=== PATIENT | male | born 1955 | race Caucasian/White ===

== ENCOUNTER 2022-07-13 09:42 | Outpatient (REF) | payer OTHER, MEDICARE, SELFPAY ==
[2022-07-13 10:09] LABS: MANUAL DIFF FLAG NO
[2022-07-13 10:44] LABS: Basophils Percent Auto 0.2 % (0-2); Eosinophils Absolute Auto 0.1 X10*3/uL (0.0-0.4); Eosinophils Percent Auto 2.8 % (0-4); Hematocrit 41.9 % (42.0-52.0); Hemoglobin 14.1 g/dl (14.0-18.0); Lymphocytes Absolute Auto 2.4 X10*3/uL (1.2-4.9); Lymphocytes Percent Auto 56.5 % (20-40); Mean Corpuscular HGB Conc 33.7 g/dl (31.0-36.0); Mean Corpuscular Hemoglobin 34.6 pg (27.0-33.0); Mean Corpuscular Volume 102.9 fL (80.0-98.0); Mean Platelet Volume 11.5 fL (9.4-12.4); Monocytes Absolute Auto 0.4 X10*3/uL (0.1-1.2); Monocytes Percent Auto 9.6 % (2-11); Neutrophils Absolute Auto 1.3 x10*3/uL (2.0-8.3); Neutrophils Percent Auto 30.9 % (45-73); Platelet Count 148 X10*3/uL (160-400); Red Blood Count 4.07 X10*6/uL (4.60-5.80); Red Cell Distribution Width 11.9 % (11.0-16.0); White Blood Count 4.3 X10*3/uL (4.8-10.8)
[2022-07-13 11:19] LABS: Alanine Aminotransferase 16 U/L (0-40); Albumin Level 4.2 g/dL (3.5-5.0); Alkaline Phosphatase 85 U/L (39-117); Anion Gap 13 (12-20); Aspartate Amino Transferase 21 U/L (5-37); Bilirubin Total 0.6 mg/dL (0.0-1.0); Blood Urea Nitrogen 9 mg/dL (9-16); Calcium 9.7 mg/dL (8.4-10.2); Carbon Dioxide 28 mmol/L (22-29); Chloride 107 mmol/L (96-108); Cholesterol 163 mg/dL; Estimated Glomerular Filt Rate > 60; Glucose Random 103 mg/dL (60-115); HDL Cholesterol 29 mg/dL; LDL Cholesterol Calculated 103 mg/dl; Potassium 4.8 mmol/L (3.3-5.1); Sodium 143 mmol/L (135-145); Total Protein 6.4 g/dL (6.5-8.0); Triglycerides 156 mg/dL
[2022-07-13 11:49] LABS: Prostate Specific Antigen Scr 0.32 ng/mL (<0.05-4.0); Thyroid Stimulating Hormone 0.95 uIU/mL (0.32-4.0); Vitamin B12 263 pg/mL (200-900)
== END 2022-07-13 09:43 | disposition home or self-care (01) ==
LOC: HO.LAB 09:42
PROVIDERS: PCP Internal Medicine; Visit Provider Internal Medicine
DX: Z12.5 Encounter for screening for malignant neoplasm of prostate (principal); F02.80 Dementia in other diseases classified elsewhere, unspecified severity, without behavioral disturbance, psychotic disturbance, mood disturbance, and anxiety; F32.9 Major depressive disorder, single episode, unspecified; H26.9 Unspecified cataract; I10 Essential (primary) hypertension; Z72.0 Tobacco use
CPT/HCPCS: 36415; 80053; 80061; 82607; 82746; 84153; 84443; 85025

== ENCOUNTER 2022-10-13 09:17 | Outpatient (REF) | payer MEDICARE, SELFPAY ==
[2022-10-13 10:28] LABS: Alanine Aminotransferase 17 U/L (0-40); Albumin Level 4.2 g/dL (3.5-5.0); Alkaline Phosphatase 92 U/L (39-117); Anion Gap 12 (12-20); Aspartate Amino Transferase 24 U/L (5-37); Bilirubin Total 0.5 mg/dL (0.0-1.0); Blood Urea Nitrogen 10 mg/dL (9-16); Calcium 10.1 mg/dL (8.4-10.2); Carbon Dioxide 30 mmol/L (22-29); Chloride 103 mmol/L (96-108); Cholesterol 101 mg/dL (<200); Estimated Glomerular Filt Rate > 60; Glucose Random 117 mg/dL (60-115); HDL Cholesterol 32 mg/dL (>40); LDL Cholesterol Calculated 44 mg/dL (<100); Potassium 4.3 mmol/L (3.3-5.1); Sodium 141 mmol/L (135-145); Triglycerides 129 mg/dL (<150)
== END 2022-10-13 09:18 | disposition home or self-care (01) ==
LOC: HO.LAB 09:17
PROVIDERS: PCP Internal Medicine; Visit Provider Internal Medicine
DX: E78.2 Mixed hyperlipidemia (principal); I10 Essential (primary) hypertension; Z72.0 Tobacco use
CPT/HCPCS: 36415; 80053; 80061

== ENCOUNTER 2023-02-14 09:44 | Outpatient (REF) | payer MEDICARE, SELFPAY ==
[2023-02-14 11:17] LABS: Estimated Average Glucose 131 mg/dL; Hemoglobin A1c % 6.2 % (<6.0)
[2023-02-14 11:19] LABS: Alanine Aminotransferase 31 U/L (0-40); Albumin Level 4.3 g/dL (3.5-5.0); Alkaline Phosphatase 94 U/L (39-117); Anion Gap 12 (12-20); Aspartate Amino Transferase 24 U/L (5-37); Bilirubin Total 0.5 mg/dL (0.0-1.0); Blood Urea Nitrogen 24 mg/dL (9-16); Calcium 9.8 mg/dL (8.4-10.2); Carbon Dioxide 28 mmol/L (22-29); Chloride 109 mmol/L (96-108); Estimated Glomerular Filt Rate > 60; Glucose Random 134 mg/dL (60-115); Potassium 4.2 mmol/L (3.3-5.1); Sodium 145 mmol/L (135-145); Total Protein 7.1 g/dL (6.5-8.0)
== END 2023-02-14 09:45 | disposition home or self-care (01) ==
LOC: HO.LAB 09:44
PROVIDERS: PCP Internal Medicine; Visit Provider Internal Medicine
DX: E78.2 Mixed hyperlipidemia (principal); G47.00 Insomnia, unspecified; I10 Essential (primary) hypertension; R73.01 Impaired fasting glucose; Z72.0 Tobacco use
CPT/HCPCS: 36415; 80053; 83036

== ENCOUNTER 2023-07-12 09:51 | Outpatient (REF) | payer MEDICARE, SELFPAY ==
[2023-07-12 11:02] LABS: Estimated Average Glucose 123 mg/dL; Hemoglobin A1c % 5.9 % (<6.0)
[2023-07-12 11:31] LABS: Alanine Aminotransferase 18 U/L (0-40); Albumin Level 4.5 g/dL (3.5-5.0); Alkaline Phosphatase 110 U/L (39-117); Anion Gap 9 (12-20); Aspartate Amino Transferase 20 U/L (5-37); Bilirubin Total 0.4 mg/dL (0.0-1.0); Blood Urea Nitrogen 17 mg/dL (9-16); Calcium 9.9 mg/dL (8.4-10.2); Carbon Dioxide 29 mmol/L (22-29); Chloride 107 mmol/L (96-108); Cholesterol 150 mg/dL (<200); Estimated Glomerular Filt Rate > 60; Glucose Random 112 mg/dL (60-115); HDL Cholesterol 38 mg/dL (>40); LDL Cholesterol Calculated 93 mg/dL (<100); Potassium 4.4 mmol/L (3.3-5.1); Sodium 141 mmol/L (135-145); Total Protein 7.5 g/dL (6.5-8.0); Triglycerides 97 mg/dL (<150)
[2023-07-12 11:59] LABS: Folate 11.6 ng/mL (> or = 4.0); Prostate Specific Antigen Scr 0.29 ng/mL (<0.05-4.0); Vitamin B12 278 pg/mL (200-900)
== END 2023-07-12 09:52 | disposition home or self-care (01) ==
LOC: HO.LAB 09:51
PROVIDERS: PCP Internal Medicine; Visit Provider Internal Medicine
DX: E78.2 Mixed hyperlipidemia (principal); F02.80 Dementia in other diseases classified elsewhere, unspecified severity, without behavioral disturbance, psychotic disturbance, mood disturbance, and anxiety; I10 Essential (primary) hypertension; N40.0 Benign prostatic hyperplasia without lower urinary tract symptoms; R73.01 Impaired fasting glucose; Z72.0 Tobacco use; Z12.5 Encounter for screening for malignant neoplasm of prostate
CPT/HCPCS: 36415; 80053; 80061; 82607; 82746; 83036; 84153

== ENCOUNTER 2024-03-20 10:29 | Outpatient (REF) | payer MEDICARE, SELFPAY ==
[2024-03-20 10:43] LABS: MANUAL DIFF FLAG NO
[2024-03-20 11:23] LABS: Basophils Percent Auto 0.3 % (0-2); Eosinophils Absolute Auto 0.1 X10*3/uL (0.0-0.4); Eosinophils Percent Auto 1.7 % (0-4); Hematocrit 41.7 % (42.0-52.0); Hemoglobin 14.6 g/dl (14.0-18.0); Imm Gran Abs Auto 0.01 X10*3/uL (0.00-0.03); Imm Gran Pct Auto 0.2 % (0.0-0.4); Lymphocytes Absolute Auto 3.2 X10*3/uL (1.2-4.9); Lymphocytes Percent Auto 49.5 % (20-40); Mean Corpuscular Hemoglobin 35.1 pg (27.0-33.0); Mean Corpuscular Volume 100.2 fL (80.0-98.0); Mean Platelet Volume 11.6 fL (9.4-12.4); Monocytes Absolute Auto 0.5 X10*3/uL (0.1-1.2); Monocytes Percent Auto 7.6 % (2-11); Neutrophils Absolute Auto 2.7 x10*3/uL (2.0-8.3); Neutrophils Percent Auto 40.7 % (45-73); Platelet Count 128 X10*3/uL (160-400); Red Blood Count 4.16 X10*6/uL (4.60-5.80); Red Cell Distribution Width 11.9 % (11.0-16.0); White Blood Count 6.5 X10*3/uL (4.8-10.8)
[2024-03-20 11:38] LABS: Alanine Aminotransferase 28 U/L (0-40); Albumin Level 4.2 g/dL (3.5-5.0); Alkaline Phosphatase 91 U/L (39-117); Anion Gap 9 (12-20); Aspartate Amino Transferase 27 U/L (5-37); Bilirubin Total 0.6 mg/dL (0.0-1.0); Blood Urea Nitrogen 10 mg/dL (9-16); Calcium 9.4 mg/dL (8.4-10.2); Carbon Dioxide 26 mmol/L (22-29); Chloride 108 mmol/L (96-108); Estimated Glomerular Filt Rate > 60; Glucose Random 129 mg/dL (60-115); Potassium 4.1 mmol/L (3.3-5.1); Sodium 139 mmol/L (135-145); Total Protein 7.2 g/dL (6.5-8.0)
== END 2024-03-20 10:30 | disposition home or self-care (01) ==
LOC: HO.LAB 10:29
PROVIDERS: PCP Internal Medicine; Visit Provider Internal Medicine
DX: D69.6 Thrombocytopenia, unspecified (principal); E78.2 Mixed hyperlipidemia; H26.9 Unspecified cataract; I10 Essential (primary) hypertension; Z72.0 Tobacco use
CPT/HCPCS: 36415; 80053; 85025

== ENCOUNTER 2024-08-20 05:53 | Inpatient (IN) | payer MEDICARE, SELFPAY ==
[2024-08-20] VITALS (8 sets, daily range): BP systolic 118–165; BP diastolic 46–102; PULSE 51–65; RESP 10–20; TEMP 36.2–36.6; O2SAT 95–100; BMI 24.3; BMI 24.2
--- NOTE | 2024-08-20 | ECG_ITS ---
Test Reason : CP Blood Pressure : */* mmHG Vent. Rate : 57 BPM Atrial Rate : 57 BPM P-R Int : 146 ms QRS Dur : 86 ms QT Int : 404 ms P-R-T Axes : 19 82 60 degrees QTcB Int : 393 ms Sinus bradycardia T wave abnormality, consider anterior ischemia Abnormal ECG No previous ECGs available Referred By: Generic ED Physician Electronically Signed By: Yong Arellano
--- NOTE | ~2024-08-20 | XR_ITS ---
CLINICAL HISTORY: chest pain 1 view chest x-ray Comparison: None provided Findings: Right lower lobe consolidation. Normal heart size. No acute fracture. IMPRESSION: 1. Hazy right lower lobe consolidation concerning for infection. This document has been electronically signed by: Radha Boo MD on 08/20/2024 07:42:19
--- NOTE | ~2024-08-20 | CT_ITS ---
EXAMINATION: CT CHEST WITHOUT IV CONTRAST INDICATION: abnormal chest x-ray COMPARISON: Correlation is made with an AP portable view of the chest performed earlier in the day. TECHNIQUE: Helical CT scan of the chest was performed without intravenous contrast. Coronal and sagittal reformatted images were generated and reviewed. This CT exam was performed with one or more of the following dose reduction techniques: automated exposure control, adjustment of the mA and/or kV according to patient size, use of iterative reconstruction technique. DLP: 239 mGy-cm CHEST: THYROID: The thyroid is unremarkable. LUNGS: There are mild emphysematous changes. There is minimal dependent atelectasis in both lower lobes. The lungs are otherwise clear. No focal airspace opacities are identified. MEDIASTINUM: There is no mediastinal lymphadenopathy. NEO: Evaluation of the hilar regions is limited by lack of intravenous contrast material. CARDIOVASCULATURE: The heart is normal in size. There is no pericardial effusion. The thoracic aorta is normal in caliber. DEGREE OF CORONARY CALCIFICATION: mild PLEURA: There is no pleural effusion. No pneumothorax. MAIN AIRWAYS: The mainstem bronchi and proximal branches are patent. AXILLA: There is no axillary lymphadenopathy. BONES AND SOFT TISSUES: Unremarkable UPPER ABDOMEN: The visualized portions of the liver, spleen, and adrenals have an unremarkable unenhanced appearance. CT/CT chest wo IV con IMPRESSION: Mild emphysema. Mild dependent atelectasis. No focal airspace opacity is seen to suggest pneumonia. Electronically signed by: Jose M Saenz MD 08/20/2024 09:23 AM EDT
--- OUTSIDE RECORDS SUMMARY | 2024-08-20 06:05 | XMS_ITS | Patient Health Record ---
Author Organization [facility] Address [address] [place] [address] Care Team Providers [employer] Name Role Phone Marlen Clark Primary Care Provider Unavailab Jose M Cano Unavailable [phone] Reason For Referral No Information Medications Medication SIG (Take, Route, Fr equency, Duration) Notes Start Date End Date Status MoviPrep 100 GM as directed Orally once for 1 dose 05/16/2012 Active Problems Problem Type SNOMED Code ICD Code Onset Dates Problem Status W/U Status Risk Notes Problem Colon cancer screening (V76.51) Active confirmed Plan Of Treatment Future Test Test Name Order Date COLONOSCOPY 05/16/2012 Insurance Providers Payer Name Payer Address Payer Phone Subscriber Number Group Number Insured Name Patient Relationship to Insured Coverage Start Date Coverage End Date [facility] [address] [place], [place] [id number] HARRY SAMUELS Self - patient is the insured Medical (General) History Medical History History ICD Code Diet-controlled DM Hyperlipidemia Denies [place],CVA,Lung disease,renal disease
--- NOTE | 2024-08-20 06:10 | ED.CHESTPAIN ---
HPI - Chest Pain General Chief Complaint: Chest Pain Stated Complaint: CP Time Seen by Provider: 08/20/24 06:00 Source: patient and old records reviewed Mode of arrival: ambulatory Limitations: no limitations History of Present Illness ED Provider: MARCIN HPI narrative: 69 yo male with PMH of HTN, HLD, smoker no known CAD but family has hx of CAD here with c/o chest pain on and off x 1 week. No preceding URI, travel, procedures. He states it is not related to exertion. He has refused to come to the doctors. Last night he had more pressure while watching TV and felt nauseated. His is here and notes he had pain from 7pm to 5am. Patient states it feels pressure. He blames his smoking. His father of a [place] as well. Patient has never had cardiac work up before. MD complaint: chest pain Onset (ago): week(s) (1) Timing of current episode: episodic and now resolved Prior episodes: Yes Onset: during rest Pain location: substernal, left chest and right chest Pain radiation: none Severity: moderate Quality: other (pressure) Relieving factors: rest Exacerbating factors: nothing Associated symptoms: nausea Treatment prior to arrival: none Related Data Allergies Allergy/AdvReac Type Severity Reaction Status Date / Time No Known Allergies Allergy Mild NKA Verified 08/20/24 06:09 Review of Systems Review of Systems: Constitutional : No Weight loss, No Fever, No Chills ENT/Mouth : No sore throat, No Rhinorrhea Eyes: No Eye Pain, No Swelling Cardiovascular : pos Chest Pain, no SOB, No Orthopnea, No Edema, No Palpitations Respiratory : No Cough, No Sputum Gastrointestinal : pos Nausea, No Vomiting, No Diarrhea, No abdominal Pain, No Hematochezia, No Melena Genitourinary : No Dysuria, No Urinary Frequency Musculoskeletal : No joint pain, No Myalgias, No Joint Swelling Skin : No Skin Lesions, No rash Neuro : No Weakness, No Numbness, No Dizziness, No Headache Psych : No Anxiety/Panic, No Depression Heme/Lymph: No Bruising, No Lymphadenopathy Endocrine : No Polyuria, No Polydipsia All other systems reviewed and are negative PMFSH Past Medical History Attestation statement: The following information was validated with the patient. Source: old records reviewed Medical History HLD (hyperlipidemia) HTN (hypertension) Social History Social History (Updated 08/20/24 @ 07:20 by Chelsie Mckeon DO) Patient Tobacco Use Status: Current everyday Tobacco user Smoked in Last 30 Days: Yes Use of substances other than those prescribed or required for medical reasons: No Advance Directives: No Advance Directives Information Provided: Yes Do you have a plan to hurt others: No Plan Physical Exam Vital Signs: Vital Signs: Last Vital Signs Temp 97.2 F 08/20/24 07:09 Pulse 60 08/20/24 07:09 Resp 15 08/20/24 07:09 BP 140/58 H 08/20/24 07:09 Pulse Ox 97 08/20/24 07:09 O2 Del Method Room Air 08/20/24 07:09 BMI result Body Mass Index 24.2 Appearance: Alert. Oriented X3. No acute distress. Eyes: Pupils equal, round and reactive to light. ENT: Pharynx normal. Neck: Normal inspection. Neck supple. CVS: Normal heart rate and rhythm. Pulses normal. Respiratory: No respiratory distress. Breath sounds normal. Abdomen: Soft and nontender. Skin: Skin warm and dry. Normal skin color. Normal skin turgor. Extremities: No lower extremity edema. No calf ttp Neuro: Oriented X 3. No motor deficit. No sensory deficit. CN2-12 intact Course Course Course Narrative: xray read as possible pneumonia but he has no wbc count he has no cough, no sputum no fevers clinically not consistent with pneumonia he is a smoker will need CT scan for mass Medications Administered Generic Name Dose Route Start Last Admin Trade Name Freq PRN Reason Stop Dose Admin Heparin Sodium/Sodium Chloride 25,000 unit in 250 mls @ 0 mls/hr 08/20/24 07:00 08/20/24 07:41 Heparin Sodium,Porcine/1/2ns IVCONT 12 units/kg/hr .Q0M MARIE 7.96 mls/hr Protocol Administration Per Protocol Discontinued Medications Generic Name Dose Route Start Last Admin Trade Name Freq PRN Reason Stop Dose Admin Aspirin 162 mg 08/20/24 06:26 08/20/24 06:33 Aspirin 81 Mg Tab.Chew PO 08/20/24 06:27 162 mg ONCE ONE Administration Medical Decision Making Medical Decision Making MDM Narrative: 69 yo male with PMH of HTN, HLD, smoker no known CAD but family has hx of CAD here with c/o chest pain and EKG changes with sig fam hx at this time will obtain labs, EKG, trop, give aspirin. He is pain free and BP is stable. Suspect ACS vs NSTEMI. He has no risk factors for VTE, his pulses are intact and one week of pressure doubt dissection. Differential Diagnosis Differential Diagnoses: The differential diagnosis associated with the presentation includes ACS, atypical chest pain, NSTEMI Admission/Observation Consideration of admission/observation: Escalation of care including admission/observation considered admit on heparin per cardiology Consult Healthcare Provider Management of the patient was discussed with: Sales Ambassador message sent to cardiology 655am Adan aware of 2nd EKG with wellens pattern plan same to admit on heparin Lab Data [facility] Lab Attestation statement: I reviewed the patient's lab results. 08/20/24 06:16 08/20/24 06:16 Labs: Lab Results 08/20/24 Range/Units 06:16 WBC 5.5 (4.8-10.8) X10*3/uL RBC 3.91 L (4.60-5.80) X10*6/uL Hgb 13.7 L (14.0-18.0) g/dl Hct 39.6 L (42.0-52.0) % MCV 101.3 H (80.0-98.0) fL MCH 35.0 H (27.0-33.0) pg MCHC 34.6 (31.0-36.0) g/dl RDW 12.0 (11.0-16.0) % Plt Count 101 L (160-400) X10*3/uL MPV 11.3 (9.4-12.4) fL Immature Gran % (Auto) 0.2 (0.0-0.4) % Neut % (Auto) 37.2 L (45-73) % Lymph % (Auto) 52.0 H (20-40) % [place] % (Auto) 8.4 (2-11) % Eos % (Auto) 1.8 (0-4) % Baso % (Auto) 0.4 (0-2) % Lymph # (Auto) 2.8 (1.2-4.9) X10*3/uL [place] # (Auto) 0.5 (0.1-1.2) X10*3/uL Eos # (Auto) 0.1 (0.0-0.4) X10*3/uL Baso # (Auto) 0.0 (0.0-0.2) X10*3/uL Abs Immat Gran (auto) 0.01 (0.00-0.03) X10*3/uL Absolute Neuts (auto) 2.0 (2.0-8.3) x10*3/uL Absolute Nucleated RBC 0.000 (0.0-0.012) X10*3/uL Nucleated RBC % (auto) 0.0 (0.0-0.2) /100WBC Smear Tech's Comments VERIFIED PT 11.3 (10.9-12.4) SEC INR 1.0 (0.9-1.1) Sodium 137 (135-145) mmol/L Potassium 3.9 (3.3-5.1) mmol/L Chloride 103 (96-108) mmol/L Carbon Dioxide 24 (22-29) mmol/L Anion Gap 14 (12-20) BUN 14 (9-16) mg/dL Creatinine 0.82 (0.5-1.4) mg/dL Estim Creat Clear Calc 75.0 Estimated GFR > 60 Random Glucose 142 H (60-115) mg/dL Calcium 9.3 (8.4-10.2) mg/dL Magnesium 1.7 (1.6-2.6) mg/dL Total Bilirubin 0.3 (0.0-1.0) mg/dL Direct Bilirubin 0.2 (0.0-0.5) mg/dL AST 161 H (5-37) U/L ALT 108 H (0-40) U/L Alkaline Phosphatase 107 (39-117) U/L Troponin I High Sens 301.1 H* (<3.5-35.0) ng/L B-Natriuretic Peptide 135 H (<100) pg/mL Total Protein 6.5 (6.5-8.0) g/dL Albumin 4.2 (3.5-5.0) g/dL Independent Interpretation I performed an independent interpretation of an: EKG and Plain X-Ray (?RLL opacity) Interpretation: Rate: 57 Rhythm: sinus bradycardia [place]: normal Normal P waves. Normal KATIE. Normal QRS complex. ST T wave : inverted t waves V1, biphasic V2-V3, no RIAN qTC: 404 prior studies: no prior The study has been interpreted contemporaneously by me. EKG #2 Rate: 58 Rhythm: sinus bradycardia [place]: normal Normal P waves. Normal KATIE. Normal QRS complex. ST T wave : inverted t waves V1-V5 no RIAN, concern for wellens qTC: 416 prior studies: changed The study has been interpreted contemporaneously by me. . Radiology Impression Discussion of test interpretation with radiology: I have reviewed the radiologist's reading. Independent Historian Clinical information obtained from an independent historian. History obtained from or confirmed by: Spouse External Record Review External record reviewed: Outpatient record and Prior outpatient labs Critical Care Time Critical Care Time Critical Care Time: Yes Total Critical Care Time: 35 Attestation: Time is exclusive of separately billable procedures. Time includes: direct patient care, patient reassessment, coordination of patient care, interpretation of data (laboratory data, pulse oximetry, arterial blood gases and chest xrays), review of patient's medical records, medical consultation and documentation of patient care. Procedures excluded from critical care time: electrocardiography. I attest to this time spent taking care of the patient Discharge Plan Discharge Clinical Impression: Non-ST elevation [place] (NSTEMI) Chest pain Qualifiers: Chest pain type: precordial pain Qualified Code(s): R07.2 - Precordial pain Patient Disposition: Admitted As Inpatient Print Language: Ecuadorean
[2024-08-20 06:36] LABS: Hematocrit 39.6 % (42.0-52.0); Hemoglobin 13.7 g/dl (14.0-18.0); Imm Gran Abs Auto 0.01 X10*3/uL (0.00-0.03); Imm Gran Pct Auto 0.2 % (0.0-0.4); Lymphocytes Absolute Auto 2.8 X10*3/uL (1.2-4.9); MANUAL DIFF FLAG SCAN; Mean Corpuscular HGB Conc 34.6 g/dl (31.0-36.0); Mean Corpuscular Hemoglobin 35.0 pg (27.0-33.0); Mean Corpuscular Volume 101.3 fL (80.0-98.0); NRBC Abs Auto 0.000 X10*3/uL (0.0-0.012); NRBC Pct Auto 0.0 /100WBC (0.0-0.2); PLT CLUMP 1; Red Blood Count 3.91 X10*6/uL (4.60-5.80); SCAN SMEAR FLAG 1
[2024-08-20 06:39] LABS: INTERNATIONAL NORM RATIO 1.0 (0.9-1.1); Prothrombin Time 11.3 SEC (10.9-12.4)
[2024-08-20 06:43] LABS: Alanine Aminotransferase 108 U/L (0-40); Albumin Level 4.2 g/dL (3.5-5.0); Alkaline Phosphatase 107 U/L (39-117); Anion Gap 14 (12-20); Aspartate Amino Transferase 161 U/L (5-37); Blood Urea Nitrogen 14 mg/dL (9-16); Calcium 9.3 mg/dL (8.4-10.2); Carbon Dioxide 24 mmol/L (22-29); Chloride 103 mmol/L (96-108); Creatinine Clr Calc Pharmacy 75.0; Estimated Glomerular Filt Rate > 60; Magnesium 1.7 mg/dL (1.6-2.6); Potassium 3.9 mmol/L (3.3-5.1); Sodium 137 mmol/L (135-145); Total Protein 6.5 g/dL (6.5-8.0)
[2024-08-20 06:45] LABS: B Type Natriuretic Peptide 135 pg/mL (<100)
[2024-08-20 06:49] LABS: Platelet Count 101 X10*3/uL (160-400); Troponin-I High Sensitivity 301.1 ng/L (<3.5-35.0); White Blood Count 5.5 X10*3/uL (4.8-10.8)
--- NOTE | 2024-08-20 06:58 | ECG_ITS ---
Test Reason : CHEST PAIN Blood Pressure : */* mmHG Vent. Rate : 58 BPM Atrial Rate : 58 BPM P-R Int : 154 ms QRS Dur : 82 ms QT Int : 424 ms P-R-T Axes : 32 81 82 degrees QTcB Int : 416 ms Sinus bradycardia Septal infarct , age undetermined ST & Marked T wave abnormality, consider anterolateral ischemia Abnormal ECG When compared with ECG of 20-Aug-2024 05:54, Non-specific change in ST segment in Anterior leads T wave inversion more evident in Anterolateral leads Referred By: Chelsie Mckeon Electronically Signed By: Yong Arellano
--- NOTE | 2024-08-20 07:00 | CA_ITS ---
Transthoracic Echocardiogram Patient (Last, First, Middle): Calvin Phillips M Gender: Male Date of : 1955 Age: 69 Procedure Date: 08/20/2024 Procedure Type: Transthoracic Echocardiogram Location: ER Height: 165.1 cm Weight: 65.77 kg BSA: 1.73 m2 Heart Rate: 55 bpm BP: 152 / 83 mmHg Ship Fitter: SB/RC Referring MD: Chepe Cadena MD Symptoms: nstemi Study Quality: Adequate ECG Rhythm: Bradycardia Conclusions: - Normal left ventricular size and systolic function. There is mildly increased left ventricular wall thickness. The visually estimated ejection fraction is between 55-60%. Diastolic function is normal for age. - The apical septum and mid inferoseptal segments are hypokinetic. - The mid anteroseptal segment is akinetic. - The left atrium is mildly dilated. The right atrium is likely dilated. Findings Left Ventricle Normal left ventricular size and systolic function. There is mildly increased left ventricular wall thickness. The visually estimated ejection fraction is between 55-60%. Diastolic function is normal for age. Wall Motion Rest Echo Findings The apical septum and mid inferoseptal segments are hypokinetic. The mid anteroseptal segment is akinetic. Right Ventricle Normal right ventricular cavity size and systolic function. Atria The left atrium is mildly dilated. The right atrium is likely dilated. Aortic Valve Normal aortic valve structure and function. There is no aortic valve stenosis. There is no aortic valve regurgitation. Mitral Valve The mitral valve appears normal. There is trace mitral valve regurgitation. There is no mitral valve stenosis. Pulmonic Valve The pulmonic valve is likely normal. Tricuspid Valve Normal tricuspid valve structure. There is mild tricuspid valve regurgitation. Normal right atrial pressure. There is no evidence of pulmonary hypertension. Great Vessels All visible segments of the aorta are normal in size. The visualized portions of the pulmonary artery and branches are normal. Venous The inferior vena cava is normal in size and collapses greater than 50% with inspiration. Pericardium/Pleural There is no evidence of pericardial effusion. Prior Study Comparison No prior study available for comparison. Measurements 2D Linear Measurements IVSd: 1.27 0.6-0.9/0.6-1.0 cm LVIDd: 4.35 3.9-5.3/4.2-5.9 cm LVIDd Index: 2.51 2.4-3.2/2.2-3.1 cm/m2 LVIDs: 3.07 2.0-3.6 cm LVPWd: 1.13 0.7-1.1 cm LA Diam: 4.10 2.7-3.8/3.0-4.0 cm LAIDs Index: 2.37 1.5-2.3 cm/m2 LV Mass: 234.24 67-162/88-224 g LV Mass Index: 135.40 43-95/49-115 g/m2 LVOT Diam: 1.90 3.0+(-)1.3 cm 2D Systolic Function EF 4C: 62.50 >55% EF 2C: 73.40 >55% EF BiP: 68.30 >55% Mitral Valve MV Pk E: 0.63 MV PK A: 0.80 MV Decel Time: 200.00 E/A: 0.80 E'Lateral: 9.03 E'Medial: 6.53 E/E' Med: 9.60 E/E' Lat: 6.90 PHT: 59.00 MVA PHT: 3.73 Decel [place]: 3.14 Aortic Valve AoV Pk Barry: 1.33 AoV Pk Grad: 7.00 JAROD: 2.14 LVOT LVOT Pk Barry: 0.98 LVOT Mn Barry: 0.65 LVOT VTI: 0.22 LVOT Pk Grad: 4.00 LVOT Mn Grad: 2.00 LVOT Diam: 1.90 LVOT Area: 2.84 Diastolic Function MV Pk E: 0.63 MV Pk A: 0.80 E/A: 0.80 E'Medial: 6.53 E/E' Med: 9.60 E' Laterial: 9.03 E/E' Lat: 6.90 Right Ventricle TAPSE (mm): 30.50 TVS' Barry: 13.90 Tricuspid Valve TR Pk Barry: 2.54 TR Pk Grad: 26.00 RA Press: 3.00 RVSP: 29.00 Great Vessels Aorta Sinus of Valsalva: 2.80 2.0-3.5 cm Ao Asc: 2.90 2.1-3.4 cm Pulmonary Valve PV Pk Barry: 1.09 Peak PV Grad: 5.00 Updated in Other Vendor System with Status of Final Yong Arellano MD electronically signed on 08/20/2024 4:11:08 PM with status of Final
[2024-08-20] MEDS: Heparin Sodium,Porcine/1/2NS 25,000 UNIT/250 ML IV.SOLN 7.96 UNIT IVCONT (07:41)
[2024-08-20 07:47] LABS: PTT Heparin Drip 30.6 SEC (53-77.9)
--- NOTE | 2024-08-20 07:51 | PC.NURSE ---
Patient is a 69 yo male with PMH of HTN, HLD, smoker no known CAD but family has hx of CAD here with c/o chest pain on and off x 1 week. He states it is not related to exertion. He has refused to come to the doctors. Last night he had more pressure while watching TV and felt nauseated. His is here and notes he had pain from 7pm to 5am. Patient states it feels pressure. He blames his smoking. His father of a [place] as well. Patient has never had cardiac work up before. Cardiac maintained and sbrady noted. Denies any CP or sob. Lungs clear bilat. Respirations even and non-labored. Abdomen soft, non-tender with positive bowel sounds. Positive pedal pulses with no edema. 1st troponin noted to be positive and heparin gtt initiated per protocol.
--- NOTE | 2024-08-20 08:45 | P.HPHOSP_ITS ---
History of Present Illness Date of Service: 08/20/24 Chief Complaint: chest and back pain The patient is a 69-year-old male with a past medical history of hypertension, hyperlipidemia, tobacco smoking and a family history of premature CAD who presents to the emergency room with complaints of back and chest pain for the last 1 week. The patient reports symptoms of intermittent, sharp, back pain it but occurring multiple times throughout the day. Reports similar symptoms in the past but states that over the last 1 week this has occurred nearly daily. He states that these symptoms happen at rest. He reports feeling nauseating and diaphoretic during the episodes. He reports that over the last several days he has also began feeling substernal chest pressure. On workup in the emergency room the patient was found to have EKG changes in the anterior leads. His initial troponins 300. He has been initiated on oral aspirin and IV heparin drip. His case has been discussed with the on-call cloth colors examiner. The patient is seen and examined in the ED around 08:30. His is bedside who translates. Dispatcher Street Department services are offered and declined. Daughter is also on the phone. The patient reports no current chest pain. States feels better. Review of Systems 2 Review of Systems: Negative except HPI/interval history. [facility] Medical History HLD (hyperlipidemia) HTN (hypertension) Pertinent family history: CAD in father in 50s CVA in sister Social History (Updated 08/20/24 @ 07:20 by Chelsie Mckeon DO) Patient Tobacco Use Status: Current everyday Tobacco user Smoked in Last 30 Days: Yes Use of substances other than those prescribed or required for medical reasons: No Advance Directives: No Advance Directives Information Provided: Yes Do you have a plan to hurt others: No Plan Meds Allergies Allergy/AdvReac Type Severity Reaction Status Date / Time No Known Allergies Allergy Mild NKA Verified 08/20/24 06:09 Active Medications: Current Medications Acetaminophen (Acetaminophen 325 Mg Tablet) 650 mg PO Q6H PRN PRN Reason: Pain, Mild 1-3,fever,headache Calcium Carbonate (Calcium Carbonate 750 Mg Tab.Chew) 750 mg PO Q4H PRN PRN Reason: Heartburn Heparin Sodium (Porcine) (Heparin Sodium,Porcine 5,000 Unit/Ml Vial) 2,700 unit 40 unit/kg (2700 unit) IVPUSH PROTOCOL BOLUS PRN; Protocol PRN Reason: 40 unit/kg - Heparin Protocol Heparin Sodium (Porcine) (Heparin Sodium,Porcine 5,000 Unit/Ml Vial) 5,300 unit 80 unit/kg (5300 unit) IVPUSH PROTOCOL BOLUS PRN; Protocol PRN Reason: 80 unit/kg - Heparin Protocol Heparin Sodium/Sodium Chloride (Heparin Sodium,Porcine/1/2ns) 25,000 unit in 250 mls @ 0 mls/hr IVCONT .Q0M MARIE; Protocol Last Admin: 08/20/24 07:41 Dose: 12 units/kg/hr, 7.96 mls/hr Magnesium Hydroxide (Milk Of Magnesia 30 Ml Oral.Susp) 30 ml PO DAILY PRN PRN Reason: Constipation Melatonin (Melatonin 3 Mg Tablet) 6 mg PO BEDTIME PRN PRN Reason: Insomnia Sodium Chloride (0.9 % Sodium Chloride Flush 3 Ml Syringe) 3 [facility] Medications ?Medication ?Instructions ?Recorded ?Confirmed ?Last Taken ?Type atorvastatin 10 mg tablet 10 mg PO DAILY 08/20/24 Unk nown History donepezil 10 mg tablet 10 mg PO DAILY 08/20/24 Unk nown History losartan 50 mg tablet 50 mg PO DAILY 08/20/24 Unk nown History Physical Exam 2 Vital Signs and Narrative: Vital Signs: Last Vital Signs Temp 97.2 F 08/20/24 08:17 Pulse 62 08/20/24 08:17 Resp 10 L 08/20/24 08:17 BP 118/58 L 08/20/24 08:17 Pulse Ox 99 08/20/24 08:17 O2 Del Method Room Air 08/20/24 08:17 BMI result Body Mass Index 24.2 Const: Other: Constitutional - Awake and Alert, No apparent distress Eyes - PERRLA, EOMI Cardiovascular - S1S2, RRR, No edema Respiratory - Normal lung expansion, Normal respiratory effort, No respiratory distress, CTA bilaterally Gastrointestinal - NT / ND; +BS; No rebound or guarding - No CVA tenderness Extremities - no calf tenderness bilaterally, no swelling Musculoskeletal - Normal inspection, normal ROM Skin - Warm/Dry Neurological - Alert & oriented x3, No focal deficit Psychological - Appropriate affect Results Labs 08/20/24 06:16 08/20/24 06:16 Labs: Laboratory Results - last 24 hr 08/20/24 08/20/24 06:16 07:28 MCV 101.3 H MCH 35.0 H MCHC 34.6 RDW 12.0 Plt Count 101 L MPV 11.3 Immature Gran % (Auto) 0.2 Neut % (Auto) 37.2 L Lymph % (Auto) 52.0 H [place] % (Auto) 8.4 Eos % (Auto) 1.8 Baso % (Auto) 0.4 Lymph # (Auto) 2.8 [place] # (Auto) 0.5 Eos # (Auto) 0.1 Baso # (Auto) 0.0 Abs Immat Gran (auto) 0.01 Absolute Neuts (auto) 2.0 Absolute Nucleated RBC 0.000 Nucleated RBC % (auto) 0.0 Smear Tech's Comments VERIFIED PT 11.3 INR 1.0 aPTT Heparin Protocol 30.6 L Anion Gap 14 Estim Creat Clear Calc 75.0 Estimated GFR > 60 Random Glucose 142 H Calcium 9.3 Magnesium 1.7 Total Bilirubin 0.3 Direct Bilirubin 0.2 AST 161 H ALT 108 H Alkaline Phosphatase 107 B-Natriuretic Peptide 135 H Total Protein 6.5 Albumin 4.2 Assessment and Plan (1) Non-ST elevation MD (NSTEMI): Status: Acute Plan 69 yo M with risk factors for CAD including HTN, HLD, tobacco use and FH for premature CAD in father who presents with intermittent chest and back pain x 1 week. Work up in ED consistent with NSTEMI. Will be admitted for further work up. 1. NSTEMI Ishcemic changes in the anterior lead + positive trop IV heparin, asa, statin, BB if bp allows (HR in the 60s currently) cardiology consult, 2d echo 2. HTN ? on losartan at home, will hold to make room for metoprolol 3. HLD AST/ALT elevated -- hold statin for now (will d/w cardiology) check lipids 4. Abnormal cxr being read as pneumonia -- pt without symptoms CT chest pending 5. Transaminitis pt endorses social drinking only will trend Full Code DVT pptx - lovenox Quality Stroke Does the patient have a stroke diagnosis?: No VTE Prior VTE?: No VTE Risk Level:: Medical - moderate - high VTE Device Contraindication: N/A - Device Ordered VTE Drug Contraindication: N/A - Med Ordered
--- NOTE | 2024-08-20 08:57 | PHA.MEDREC ---
Pharmacy Consult ? Medication Reconciliation Pharmacy has completed the medication reconciliation. Spoke with patient's family at bedside, she had his prescription bottles with her.
--- NOTE | 2024-08-20 09:20 | MHC.CM.PN ---
PATIENT IS INDEPENDENT PRIOR TO ARRIVAL. DOES NOT RELY ON DME VERIFIES DEMOGRAPHICS AND PCP. NEW HCP COMPLETED, PLACED IN CHART, AND UPLOADED INTO [facility]. IMM 08/19/ COMPLETED AND PLACED IN FILE
[2024-08-20 09:34] LABS: Cholesterol 118 mg/dL (<200); HDL Cholesterol 35 mg/dL (>40); Triglycerides 166 mg/dL (<150)
--- NOTE | 2024-08-20 13:07 | P.CONCA_ITS ---
History of Present Illness History of Present Illness Date of Service: 08/20/24 Requesting physician: Chepe Cadena Chief complaint: nstemi Narrative: Pleasant 69-year-old gentleman presenting for chest discomfort. He said he has central chest tightness yesterday and another episode happened a week ago. Last night his symptoms were persistent and he came to the emergency department. His EKGs showed biphasic precordial T-wave inversion which evolved into anterolateral T-wave inversions. He has ruled in for NSTEMI. He has been asymptomatic since admission. He has background of hypertension hyperlipidemia. He is an active smoker. He drinks beer off and on but does not drink heavily. [facility] Past Medical History Medical History HLD (hyperlipidemia) HTN (hypertension) Social History Social History (Updated 08/20/24 @ 07:20 by Chelsie Mckeon DO) Patient Tobacco Use Status: Current everyday Tobacco user Smoked in Last 30 Days: Yes Use of substances other than those prescribed or required for medical reasons: No Advance Directives: No Advance Directives Information Provided: Yes Do you have a plan to hurt others: No Plan service: No Meds Allergies Allergy/AdvReac Type Severity Reaction Status Date / Time No Known Allergies Allergy Mild NKA Verified 08/20/24 06:09 Active Medications: Current Medications Acetaminophen (Acetaminophen 325 Mg Tablet) 650 mg PO Q6H PRN PRN Reason: Pain, Mild 1-3,fever,headache Calcium Carbonate (Calcium Carbonate 750 Mg Tab.Chew) 750 mg PO Q4H PRN PRN Reason: Heartburn Heparin Sodium (Porcine) (Heparin Sodium,Porcine 5,000 Unit/Ml Vial) 2,700 unit 40 unit/kg (2700 unit) IVPUSH PROTOCOL BOLUS PRN; Protocol PRN Reason: 40 unit/kg - Heparin Protocol Heparin Sodium (Porcine) (Heparin Sodium,Porcine 5,000 Unit/Ml Vial) 5,300 unit 80 unit/kg (5300 unit) IVPUSH PROTOCOL BOLUS PRN; Protocol PRN Reason: 80 unit/kg - Heparin Protocol Heparin Sodium/Sodium Chloride (Heparin Sodium,Porcine/1/2ns) 25,000 unit in 250 mls @ 0 mls/hr IVCONT .Q0M MARIE; Protocol Last Admin: 08/20/24 07:41 Dose: 12 units/kg/hr, 7.96 mls/hr Magnesium Hydroxide (Milk Of Magnesia 30 Ml Oral.Susp) 30 ml PO DAILY PRN PRN Reason: Constipation Melatonin (Melatonin 3 Mg Tablet) 6 mg PO BEDTIME PRN PRN Reason: Insomnia Sodium Chloride (0.9 % Sodium Chloride Flush 3 Ml Syringe) 3 ml IVFLUSH QSHIFT [facility] Home Medications ?Medication ?Instructions ?Recorded ?Confirmed ?Last Taken ?Type atorvastatin 10 mg tablet 10 mg PO DAILY 08/20/2410/0708/19/24 09:00 History donepezil 10 mg tablet 10 mg PO DAILY 08/20/2410/0708/19/24 09:00 History losartan 50 mg tablet 50 mg PO DAILY 08/20/2410/0708/19/24 09:00 History Physical Exam 2 Vital Signs: Vital Signs: Last Vital Signs Temp 97.2 F 08/20/24 08:17 Pulse 61 08/20/24 10:00 Resp 15 08/20/24 10:00 BP 142/59 H 08/20/24 10:00 Pulse Ox 95 08/20/24 10:00 O2 Del Method Room Air 08/20/24 10:00 BMI result Body Mass Index 24.2 GENERAL APPEARANCE: in no acute distress, pleasant. NECK: no carotid bruit, no jugular venous distention. SKIN: no suspicious lesions, warm and dry. HEART: no murmurs, regular rate and rhythm. LUNGS: clear to auscultation bilaterally. ABDOMEN: soft, nontender. EXTREMITIES: no edema. PERIPHERAL PULSES: equal. NEUROLOGIC: No gross deficits, AAO X 3 Objective Labs and Meds 08/20/24 06:16 08/20/24 06:16 Lab results: Laboratory Results - last 24 hr 08/20/24 08/20/24 06:16 07:28 WBC 5.5 RBC 3.91 L Hgb 13.7 L Hct 39.6 L MCV 101.3 H MCH 35.0 H MCHC 34.6 RDW 12.0 Plt Count 101 L MPV 11.3 Immature Gran % (Auto) 0.2 Neut % (Auto) 37.2 L Lymph % (Auto) 52.0 H [place] % (Auto) 8.4 Eos % (Auto) 1.8 Baso % (Auto) 0.4 Lymph # (Auto) 2.8 [place] # (Auto) 0.5 Eos # (Auto) 0.1 Baso # (Auto) 0.0 Abs Immat Gran (auto) 0.01 Absolute Neuts (auto) 2.0 Absolute Nucleated RBC 0.000 Nucleated RBC % (auto) 0.0 Smear Tech's Comments VERIFIED PT 11.3 INR 1.0 aPTT Heparin Protocol 30.6 L Sodium 137 Potassium 3.9 Chloride 103 Carbon Dioxide 24 Anion Gap 14 BUN 14 Creatinine 0.82 Estim Creat Clear Calc 75.0 Estimated GFR > 60 Random Glucose 142 H Calcium 9.3 Magnesium 1.7 Total Bilirubin 0.3 Direct Bilirubin 0.2 AST 161 H ALT 108 H Alkaline Phosphatase 107 Troponin I High Sens 301.1 H* B-Natriuretic Peptide 135 H Total Protein 6.5 Albumin 4.2 Triglycerides 166 H Cholesterol 118 LDL Cholesterol, Calc 50 HDL Cholesterol 35 L Imaging Radiologist's impression: Impressions Chest CT 08/20/24 07:55 IMPRESSION: Mild emphysema. Mild dependent atelectasis. No focal airspace opacity is seen to suggest pneumonia. Electronically signed by: Jose M Saenz MD 08/20/2024 09:23 AM EDT RP Assessment and Plan (1) Non-ST elevation HI (NSTEMI): Status: Acute Plan [age] year gentleman presenting with chest pain and NSTEMI. He has anterolateral T-wave inversions and presentation is highly suggestive of LAD plaque rupture. Continue baby aspirin and heparin drip. Add low-dose beta-angelica metoprolol 25 mg twice a day. High-intensity statin therapy with atorvastatin 80 mg daily. Transfer him to [facility] for potential cardiac catheterization tomorrow. Thank you for allowing me to participate in the care of your patient. Please feel free to contact me if you have any questions. Procedures Date of Service Date of Service: 08/20/24
--- NOTE | 2024-08-20 13:44 | PM.DS ---
DS: Providers Provider Date of Service: 08/20/24 Date of admission: 08/20/24 07:21 Date of discharge: 08/20/24 Primary care physician: Marlen Clark MD Consults: 08/20/24 08:09 Consult to Cardiology Routine Consulting Provider: [facility] Reason for consultation: nstemi DS: Diagnosis Discharge Diagnosis (1) Non-ST elevation GA (NSTEMI): Status: Acute DS: Summary Hospital Course Hospital Course: HPI From admission H&P: The patient is a 69-year-old male with a past medical history of hypertension, hyperlipidemia, tobacco smoking and a family history of premature CAD who presents to the emergency room with complaints of back and chest pain for the last 1 week. The patient reports symptoms of intermittent, sharp, back pain it but occurring multiple times throughout the day. Reports similar symptoms in the past but states that over the last 1 week this has occurred nearly daily. He states that these symptoms happen at rest. He reports feeling nauseating and diaphoretic during the episodes. He reports that over the last several days he has also began feeling substernal chest pressure. On workup in the emergency room the patient was found to have EKG changes in the anterior leads. His initial troponins 300. He has been initiated on oral aspirin and IV heparin drip. His case has been discussed with the on-call electric golf cart repairer. The patient is seen and examined in the ED around 08:30. His is bedside who translates. [employer] services are offered and declined. Daughter is also on the phone. The patient reports no current chest pain. States feels better. Hospital Course: Patient is started on medical treatment for NSTEMI (EKG with anteriolateral ischemic change) with IV heparin, aspirin, beta-blockers and statin. Monitored on telemetry. Evaluated by cardiology who recommended transfer to [facility] for cardiac cath. Pt hemodynamically stable during hospitalization with no active chest pain. Time Attestation Discharge Coordination Time (in mins): 40 Quality: Safe Use of Opioids Does Pt have an Active Cancer Diagnosis on the Problem List?: No Quality: Stroke Does the patient have a stroke diagnosis?: No Physical Exam Vital Signs: Vital Signs: Last Vital Signs Temp 97.2 F 08/20/24 08:17 Pulse 65 08/20/24 12:00 Resp 16 08/20/24 12:00 BP 146/64 H 08/20/24 12:00 Pulse Ox 96 08/20/24 12:00 O2 Del Method Room Air 08/20/24 12:00 BMI result Body Mass Index 24.2 Const: Other: General - no acute distress, appears comfortable Cardiovascular - regular rate and rhythm, S1-S2 Lungs - normal respiratory effort, clear to auscultation bilaterally, no wheezing Abdomen - soft, nontender, no rebound or guarding Extremities - no edema bilaterally Neuro - awake and alert, no focal deficits DS: Data Data Completed and Pending Labs on day of discharge: Laboratory Results - last 24 hr 08/20/24 08/20/24 06:16 07:28 WBC 5.5 RBC 3.91 L Hgb 13.7 L Hct 39.6 L MCV 101.3 H MCH 35.0 H MCHC 34.6 RDW 12.0 Plt Count 101 L MPV 11.3 Immature Gran % (Auto) 0.2 Neut % (Auto) 37.2 L Lymph % (Auto) 52.0 H [place] % (Auto) 8.4 Eos % (Auto) 1.8 Baso % (Auto) 0.4 Lymph # (Auto) 2.8 [place] # (Auto) 0.5 Eos # (Auto) 0.1 Baso # (Auto) 0.0 Abs Immat Gran (auto) 0.01 Absolute Neuts (auto) 2.0 Absolute Nucleated RBC 0.000 Nucleated RBC % (auto) 0.0 Smear Tech's Comments VERIFIED PT 11.3 INR 1.0 aPTT Heparin Protocol 30.6 L Sodium 137 Potassium 3.9 Chloride 103 Carbon Dioxide 24 Anion Gap 14 BUN 14 Creatinine 0.82 Estim Creat Clear Calc 75.0 Estimated GFR > 60 Random Glucose 142 H Calcium 9.3 Magnesium 1.7 Total Bilirubin 0.3 Direct Bilirubin 0.2 AST 161 H ALT 108 H Alkaline Phosphatase 107 Troponin I High Sens 301.1 H* B-Natriuretic Peptide 135 H Total Protein 6.5 Albumin 4.2 Triglycerides 166 H Cholesterol 118 LDL Cholesterol, Calc 50 HDL Cholesterol 35 L Discharge Plan Discharge Anticipated Discharge Date/Time: 08/20/24 13:40 Patient Disposition: Xfer Acute Care Hospital Discharge Diagnosis: NSTEMI Referrals: Marlen Clark MD [Primary Care Provider, Internal Medicine] - 1 Week Discharge Medications: New atorvastatin 80 mg Tablet 80 mg PO DAILY Qty: 1 0RF aspirin 81 mg Tablet,Chewable 81 mg PO DAILY Qty: 1 0RF heparin (porcine) 5,000 unit/mL Solution 2,700 unit IVPUSH PROTOCOL BOLUS PRN (Reason: 40 Unit/Kg - Heparin Protocol) Qty: 1 0RF heparin (porcine) 5,000 unit/mL Solution 5,300 unit IVPUSH PROTOCOL BOLUS PRN (Reason: 80 Unit/Kg - Heparin Protocol) Qty: 1 0RF metoprolol tartrate 25 mg Tablet 25 mg PO BID Qty: 1 0RF Protocol: Hold for SBP/HR < HOLD for SBP < : 90 HOLD for HR < : 60 heparin(porcine) in 0.45% NaCl 25,000 unit/250 mL Parenteral Solution 25,000 unit continuous IV infusion .Q0M Qty: 1 0RF Continued donepezil 10 mg tablet 10 mg PO DAILY Discontinued losartan 50 mg tablet 50 mg PO DAILY atorvastatin 10 mg tablet 10 mg PO DAILY Discharge Orders: Discharge Order (Routine); Ordered 08/20/24 Ordered By: Chepe Cadena Diet: Advance to usual diet Activity on Discharge: per [facility] providers Stand Alone Forms: Patient Portal Discharge page Print Language: Mongolian Care Plan Goals: Transfer to [facility] for cardiac cath Health Concerns: NSTEMI Plan of Treatment: Transfer to [facility] for cardiac cath Assessment: Admitted for NSTEMI, started on medical thearpies. Evaluated by cardiology and planned for transfer to [facility].
[2024-08-20 13:51] LABS: PTT Heparin Drip 41.5 SEC (53-77.9)
--- NOTE | 2024-08-20 14:41 | MHC.EDTECH ---
@14:40 CALL RECEIVE FROM IVAN OF [facility] PT TX LINE WITH ROOM ASSIGNMENT T/W WAS NOT AWARE OF THIS TRANSFER MED NEC WILL BE OBTAINED FROM [facility] 5 ROOM 24 RN TO RN: [phone] IRIZARRY
--- NOTE | 2024-08-20 14:58 | PC.NURSE ---
Report given to Phyllis RAMÍREZ at [facility]
--- NOTE | 2024-08-20 15:25 | MHC.CM.PN ---
PATIENT ACUTE CARE TRANSFER TO [facility]
--- NOTE | 2024-08-20 16:29 | PC.NURSE ---
Heparin gtt infusing at 14/u/kg per hour. Patient transitioned to [facility] via EMS with heparin infusing.
== END 2024-08-20 18:09 | disposition short-term general hospital (02) | DRG 282 ==
LOC: HO.ED 07:25 → HO.EDOVER 07:48
PROVIDERS: Admitting Provider Internal Medicine; Emergency Provider Emergency Medicine; PCP Internal Medicine; Visit Provider Family Medicine
DX: I21.4 Non-ST elevation (NSTEMI) myocardial infarction (principal); F17.210 Nicotine dependence, cigarettes, uncomplicated; Z71.6 Tobacco abuse counseling; I10 Essential (primary) hypertension; E78.5 Hyperlipidemia, unspecified; R91.8 Other nonspecific abnormal finding of lung field
CPT/HCPCS: 36415; 71045; 71250; 80048; 80061; 80076; 83735; 83880; 84484; 85025; 85610; 85730; 93005; 93306; 99285; J1644

== ENCOUNTER → 2024-08-20 06:01 | Outpatient (BNV) | payer MEDICARE, SELFPAY | PROVIDERS: Admitting Provider Internal Medicine; Emergency Provider Emergency Medicine; PCP Internal Medicine; Visit Provider Radiology Diagnostic Radiology | DX: J43.8 Other emphysema (principal); R07.9 Chest pain, unspecified | CPT/HCPCS: 71045; 71250 ==

== ENCOUNTER → 2024-08-20 07:21 | Outpatient (BNV) | payer MEDICARE, SELFPAY | PROVIDERS: Admitting Provider Internal Medicine; Emergency Provider Emergency Medicine; PCP Internal Medicine; Visit Provider Family Medicine | DX: I21.4 Non-ST elevation (NSTEMI) myocardial infarction (principal) | CPT/HCPCS: 99222; 99499 ==

== ENCOUNTER → 2024-08-20 07:21 | Outpatient (BNV) | payer MEDICARE, SELFPAY | PROVIDERS: Admitting Provider Internal Medicine; Emergency Provider Emergency Medicine; PCP Internal Medicine; Visit Provider Internal Medicine Cardiovascular Disease | DX: I21.4 Non-ST elevation (NSTEMI) myocardial infarction (principal); I51.7 Cardiomegaly; I36.1 Nonrheumatic tricuspid (valve) insufficiency; R94.31 Abnormal electrocardiogram [ECG] [EKG] | CPT/HCPCS: 93010; 93306; 99223 ==

== ENCOUNTER → 2024-08-21 23:59 | Outpatient (BNV) | payer MEDICARE, SELFPAY | PROVIDERS: PCP Internal Medicine; Visit Provider Internal Medicine Cardiovascular Disease | DX: I21.4 Non-ST elevation (NSTEMI) myocardial infarction (principal) | CPT/HCPCS: 92928; 93458; 99152 ==

== ENCOUNTER 2024-09-18 14:46 | Outpatient (AMB) | payer MEDICARE, SELFPAY ==
--- NOTE | 2024-09-18 14:49 | A.OFFVIS_ITS ---
Vital Signs 09/18/24 14:51 Height 5 ft 5 in Weight 143 lb 4.807 oz BMI 23.8 BP 122/58 L Blood Pressure Location Lt brachial Position Sitting Pulse 58 Pulse Source Pulse Oximeter Intake Visit Reasons: [facility] [place] follow up (KM) Intake Note: [facility] [place] Lace Roller Required: Yes Lace Roller Name: yogi/matt Kern [id number] Accompanied by: Spouse Allergies No Known Allergies Allergy (Mild, Verified 08/20/24 06:09) NKA Medication List - Last Reconciled 09/18/24 by Ghassan Tabares NP aspirin 81 mg PO DAILY atorvastatin 80 mg PO DAILY mecobalamin (vitamin B12) 1,000 mcg PO DAILY nicotine 1 patch transdermal DAILY ticagrelor (Brilinta) 90 mg PO BID HPI Comments Details: This is a 69-year-old male patient coming in for a hospital discharge follow-up visit status post cardiac catheterization, accompanied by his . A dough sheeter was used throughout the visit. Patient with a history of hypertension, hyperlipidemia, tobacco use, and family history of coronary artery disease. Patient was recently at the hospital for complaints of chest pain and back pain that had been ongoing for 1 week, with the associated symptoms of nausea and diaphoresis. Patient had elevated troponins with T-wave inversions on EKG as well as septal wall abnormality on echo; he ruled in for NSTEMI and was transferred to [facility] for cardiac catheterization. Today, patient reports feeling well overall and denies any cardiac symptoms of exertional chest pain, shortness of breath, palpitations, dizziness, orthopnea, PND, leg edema, presyncope or syncope. Patient is reporting compliance with all of his medications. Unfortunately, patient continues to smoke daily. [facility] Medical History HLD (hyperlipidemia) HTN (hypertension) Social History Alcohol intake: never Patient Tobacco Use Status: Current everyday Tobacco user service: No Review of Systems Const Denies chills, Denies fatigue, Denies fever(s), Denies frequent falls, Denies weakness, Denies weight gain and Denies weight loss ENT Denies dizziness Card Denies chest pain, Denies leg edema, Denies lightheadedness, Denies palpitations, Denies dyspnea and Denies dyspnea on exertion Resp Denies cough, Denies dyspnea and Denies dyspnea on exertion GI Denies hematochezia Musc Denies abnormal gait, Denies muscle weakness, Denies numbness, Denies radiating pain into limb and Denies tingling Neuro Denies abnormal gait, Denies dizziness, Denies frequent falls, Denies numbness, Denies tingling and Denies weakness Endo Denies fatigue and Denies palpitations Physical Exam Vital Signs: Last Vital Signs Pulse 58 09/18/24 14:51 BP 122/58 L 09/18/24 14:51 BMI result Body Mass Index 23.8 Const General: cooperative, healthy appearing, comfortable and no acute distress Orientation/consciousness: patient oriented x3 HEENT Head: Yes normal to inspection Neck Neck: Yes normal visual inspection, Yes trachea midline and Yes supple Chest Chest palpation & inspection: normal inspection of the chest Resp Effort & Inspection: normal respiratory effort Auscultation: clear to auscultation bilaterally, no crackles, no rales, no rhonchi and no wheezes Cardio Jugular venous distension: no JVD Palpation: normal PMI Rate: regular rate Rhythm: regular rhythm Heart sounds: S1 normal heart sound present, S2 normal heart sound present, no click, no gallops, no murmurs and no rubs Peripheral pulses: Peripheral pulses 2+ throughout GI Inspection: Yes normal to inspection Palpation (GI): Soft to palpation Auscultation: normal bowel sounds Skin General skin exam: no rashes or lesions noted Neuro General: patient oriented x3 Extrem General: Yes normal to inspection, No no pedal edema and No calf tenderness Psych Appearance: grossly normal Mental Status: mental status grossly normal Speech and movement: Normal speech and movement present Assessment & Plan Assessment & Plan (1) Non-ST elevation CA (NSTEMI): Code(s): I21.4 - Non-ST elevation (NSTEMI) myocardial infarction Category: Medical Plan: Patient was hospitalized for NSTEMI and was transferred over to [facility] for cardiac catheterization. 08/21/2024-patient underwent cardiac catheterization with Dr. Arellano at [facility] that showed 90% stenosis in the proximal LAD with 95% stenosis in the 1st diagonal LAD, and minimal luminal irregularities in the RCA. Patient is now status post successful PCI to the LAD. Continue lifelong aspirin therapy. Continue uninterrupted Brilinta therapy for at least 1 year. No reported signs of bleeding. Continue high-dose statin therapy with an LDL goal less than 70. We will repeat a lipid profile in 2 months. Patient was previously on metoprolol therapy but was discontinued for unclear reasons. We will place patient back on metoprolol XL. We will check kidney and liver function prior to next visit. We will refer patient out to cardiac rehab. (2) Coronary artery disease: Code(s): I25.10 - Atherosclerotic heart disease of [place] coronary artery without angina pectoris Category: Medical Plan: As above. (3) Coronary angioplasty status: Code(s): Z98.61 - Coronary angioplasty status Category: Surgical Plan: As above. Right wrist catheterization site is well healed. (4) HTN (hypertension): Code(s): I10 - Essential (primary) hypertension Category: Medical Plan: Blood pressure today is well-controlled. We will switch losartan to metoprolol. Advised monitoring blood pressures at home with a goal less than 130/80. Advised patient to maintain a log to bring to the nurse visit for blood pressure check in 1 month. (5) Hospital discharge follow-up: Code(s): Z09 - Encounter for follow-up examination after completed treatment for conditions other than malignant neoplasm Plan: As above. Advised heart healthy diet, regular exercise, complete smoking cessation, med compliance, and aggressive management of vascular risk factors. Follow up in 3 months. In the interim, patient will call the office with any concerns or change in symptoms. This note was generated using voice recognition software. While every effort has been made to ensure accuracy and proper branch mechanic, there may be occasional errors that could affect the content or meaning of the described symptoms. Orders: Orders Basic Metabolic Panel 2 Months I21.4 - Non-ST elevation (NSTEMI) myocardial infarction Cardiac Rehab Today Z98.61 - Coronary angioplasty status Lipid Panel 2 Months I21.4 - Non-ST elevation (NSTEMI) myocardial infarction Liver Panel 2 Months I21.4 - Non-ST elevation (NSTEMI) myocardial infarction Medications: New metoprolol succinate ER 25 mg PO DAILY 90 tabs 3RF blood pressure monitor As directed 1 ea 0RF I10 - Essential (primary) hypertension Coding Level of Care Code Est Pt Level 4 (28222) Complex EM visit Add On G2211 Diagnoses Non-ST elevation CA (NSTEMI) I21.4 Coronary artery disease I25.10 Coronary angioplasty status Z98.61 HTN (hypertension) I10 Hospital discharge follow-up Z09 Time Spent (min) 35 Comment Time spent in reviewing the chart, test results, assessment, counseling and documentation.
[2024-09-18 14:51] VITALS: BP 122/58; PULSE 58; BMI 23.8
--- OUTSIDE RECORDS SUMMARY | 2024-09-18 15:15 | XMS_ITS | Patient Health Record ---
Author Organization [facility] Address [address] [place] [address] Care Team Providers Care Agricultural Purchasing Agent Name Role Phone Marlen Clark Primary Care Provider Unavailab Jose M Cano Unavailable [phone] Reason For Referral No Information Medications Medication [...] Insured Coverage Start Date Coverage End Date [facility] [address] [place], [place] [id number] HARRY SAMUELS Self - patient is the insured Medical (General) History Medical History History ICD Code Diet-controlled DM Hyperlipidemia Denies [place],CVA,Lung disease,renal disease
== END 2024-09-18 15:34 | disposition home or self-care (01) ==
LOC: HO.HCS 14:47
PROVIDERS: PCP Internal Medicine
DX: I21.4 Non-ST elevation (NSTEMI) myocardial infarction (principal); I25.10 Atherosclerotic heart disease of native coronary artery without angina pectoris; Z98.61 Coronary angioplasty status; I10 Essential (primary) hypertension; Z09 Encounter for follow-up examination after completed treatment for conditions other than malignant neoplasm
CPT/HCPCS: 99214; G2211

== ENCOUNTER → 2024-09-18 14:46 | Outpatient (BNVA) | payer MEDICARE, SELFPAY | PROVIDERS: PCP Internal Medicine | DX: Z48.812 Encounter for surgical aftercare following surgery on the circulatory system (principal); I21.4 Non-ST elevation (NSTEMI) myocardial infarction; Z96.81 Presence of artificial skin; I25.10 Atherosclerotic heart disease of native coronary artery without angina pectoris; I10 Essential (primary) hypertension; F17.210 Nicotine dependence, cigarettes, uncomplicated | CPT/HCPCS: 99212 ==

== ENCOUNTER 2024-11-06 10:15 | Outpatient (REF) | payer MEDICARE, SELFPAY ==
[2024-11-06 10:45] LABS: MANUAL DIFF FLAG NO
[2024-11-06 11:09] LABS: Hematocrit 37.9 % (42.0-52.0); Hemoglobin 13.5 g/dl (14.0-18.0); Imm Gran Abs Auto 0.02 X10*3/uL (0.00-0.03); Imm Gran Pct Auto 0.4 % (0.0-0.4); Lymphocytes Absolute Auto 1.7 X10*3/uL (1.2-4.9); Mean Corpuscular HGB Conc 35.6 g/dl (31.0-36.0); Mean Corpuscular Hemoglobin 34.4 pg (27.0-33.0); Mean Corpuscular Volume 96.7 fL (80.0-98.0); NRBC Abs Auto 0.000 X10*3/uL (0.0-0.012); NRBC Pct Auto 0.0 /100WBC (0.0-0.2); Platelet Count 149 X10*3/uL (160-400); Red Blood Count 3.92 X10*6/uL (4.60-5.80); White Blood Count 4.7 X10*3/uL (4.8-10.8)
[2024-11-06 11:53] LABS: Alanine Aminotransferase 43 U/L (0-40); Albumin Level 4.8 g/dL (3.5-5.0); Alkaline Phosphatase 146 U/L (39-117); Anion Gap 11 (12-20); Aspartate Amino Transferase 35 U/L (5-37); Blood Urea Nitrogen 11 mg/dL (9-16); Calcium 9.7 mg/dL (8.4-10.2); Carbon Dioxide 31 mmol/L (22-29); Chloride 101 mmol/L (96-108); Cholesterol 117 mg/dL (<200); Estimated Glomerular Filt Rate > 60; HDL Cholesterol 33 mg/dL (>40); Potassium 4.5 mmol/L (3.3-5.1); Sodium 138 mmol/L (135-145); Total Protein 7.5 g/dL (6.5-8.0); Triglycerides 86 mg/dL (<150)
--- OUTSIDE RECORDS SUMMARY | 2024-11-06 12:38 | XMS_ITS | Patient Health Record ---
Author Organization [facility] Address [address] [place] [address] Care Team Providers Care Sports Administrator Name Role Phone Marlen Clark Primary Care Provider Unavailab Jose M Cano Unavailable [phone] Reason For Referral No Information Medications Medication SIG (Take, Route, Fr equency, Duration) Notes Start Date End Date Status MoviPrep 100 GM as directed Orally once for 1 dose 05/16/2012 Active Problems Problem Type SNOMED Code ICD Code Onset Dates Problem Status W/U Status Risk Notes Problem Colon cancer screening (367867718) Colon cancer screening (V76.51) Active confirmed Plan Of Treatment Future Test Test Name Order Date COLONOSCOPY 05/16/2012 Insurance Providers Payer Name Payer Address Payer Phone Subscriber Number Group Number Insured Name Patient Relationship to Insured Coverage Start Date Coverage End Date [facility] [address] [place], [place] [id number] [phone] [id number] HARRY SAMUELS Self - patient is the insured Medical (General) History Medical History History ICD Code Diet-controlled DM Hyperlipidemia Denies [place],CVA,Lung disease,renal disease
== END 2024-11-06 10:16 | disposition home or self-care (01) ==
LOC: HO.LAB 10:15
PROVIDERS: PCP Internal Medicine
DX: I21.4 Non-ST elevation (NSTEMI) myocardial infarction (principal); F17.201 Nicotine dependence, unspecified, in remission; E78.00 Pure hypercholesterolemia, unspecified; D69.6 Thrombocytopenia, unspecified; Z95.5 Presence of coronary angioplasty implant and graft
CPT/HCPCS: 36415; 80053; 80061; 85025

== ENCOUNTER 2024-12-26 13:59 | Outpatient (AMB) | payer MEDICARE, SELFPAY ==
[2024-12-26 14:02] VITALS: BP 116/54; PULSE 52; BMI 25.8
--- NOTE | 2024-12-26 14:02 | A.OFFVIS_ITS ---
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 Patient with a history of hypertension, hyperlipidemia, and coronary artery disease status post PCI to the LAD in August 2024. Today, patient is reporting feeling well overall without any cardiac symptoms of exertional chest pain, shortness of breath, palpitations, dizziness, orthopnea, PND, leg edema, presyncope or syncope. Patient is reporting compliance with all his medications. Patient states that he never went to cardiac rehab as he has been active at home. He states that he walks about an hour and half daily. Unfortunately, patient continues to smoke and states that he is trying to cut down. [facility] Medical History HLD (hyperlipidemia) HTN (hypertension) Social History Alcohol intake: never Patient Tobacco Use Status: Current everyday Tobacco user service: No Review of Systems Const Denies daytime sleepiness, Denies difficulty sleeping, Denies snoring, Denies stops breathing during sleep and Denies weakness Card Denies chest pain, Denies rapid heart rate, Denies irregular heart rhythm, Denies claudication, Denies leg edema, Denies lightheadedness, Denies palpitations, Denies dyspnea, Denies dyspnea on exertion, Denies orthopnea, Denies paroxysmal nocturnal dyspnea and Denies slow heart rate Resp Denies cough, Denies dyspnea, Denies dyspnea on exertion and Denies snoring GI Reports no additional complaints, Denies hematochezia, Denies change in stool character and Denies dyspepsia Musc Denies abnormal gait, Denies muscle weakness and Denies numbness Neuro Denies abnormal gait, Denies numbness and Denies weakness Endo Denies palpitations Physical Exam Vital Signs: Last Vital Signs Pulse 52 12/26/24 14:02 BP 116/54 L 12/26/24 14:02 BMI result Body Mass Index 25.8 Const General: cooperative, healthy appearing, comfortable and no acute distress Orientation/consciousness: patient oriented x3 HEENT Head: Yes normal to inspection Neck Neck: Yes normal visual inspection, Yes trachea midline and Yes supple Chest Chest palpation & inspection: normal inspection of the chest Resp Effort & Inspection: normal respiratory effort Auscultation: clear to auscultation bilaterally, no crackles, no rales, no rhonchi and no wheezes Cardio Jugular venous distension: no JVD Palpation: normal PMI Rate: regular rate Rhythm: regular rhythm Heart sounds: S1 normal heart sound present, S2 normal heart sound present, no click, no gallops, no murmurs and no rubs Peripheral pulses: Peripheral pulses 2+ throughout GI Inspection: Yes normal to inspection Palpation (GI): Soft to palpation Auscultation: normal bowel sounds Skin General skin exam: no rashes or lesions noted Neuro General: patient oriented x3 Extrem General: Yes normal to inspection, No no pedal edema and No calf tenderness Psych Appearance: grossly normal Mental Status: mental status grossly normal Speech and movement: Normal speech and movement present Assessment & Plan Assessment & Plan (1) Coronary artery disease: Comment: NSTEMI status post cardiac catheterization and PCI to LAD in August 2024 Code(s): I25.10 - Atherosclerotic heart disease of crow coronary artery without angina pectoris Category: Medical Plan: 08/21/2024-patient underwent cardiac catheterization with Dr. Arellano at [facility] that showed 90% stenosis in the proximal LAD with 95% stenosis in the 1st diagonal LAD, and minimal luminal irregularities in the RCA. Patient is now status post successful PCI to the LAD. Continue lifelong aspirin therapy. Continue uninterrupted Brilinta therapy for another 8 months. No reported signs of bleeding or falls. Most recent LDL at 67. Continue high-dose statin therapy with an LDL goal less than 70. Advised on heart healthy diet and regular exercise. Continue metoprolol therapy. (2) Non-ST elevation DE (NSTEMI): Code(s): I21.4 - Non-ST elevation (NSTEMI) myocardial infarction Category: Medical Plan: As above (3) Coronary angioplasty status: Code(s): Z98.61 - Coronary angioplasty status Category: Surgical Plan: As above. (4) Smoker: Code(s): F17.200 - Nicotine dependence, unspecified, uncomplicated Category: Social Hx Plan: Patient continues to smoke daily. Discussed in detail about risk with smoking and cardiovascular health. Patient verbalizes understanding. Patient is working on cutting this down. (5) HTN (hypertension): Code(s): I10 - Essential (primary) hypertension Category: Medical Plan: Blood pressure today is well-controlled. Continue current regimen with a blood pressure goal less than 130/80. Advised monitoring blood pressures at home. Advised on low-salt diet. Advised on heart healthy diet, regular exercise, med compliance, complete smoking cessation, and aggressive management of vascular risk factors. Follow up in 6 months. In the interim, patient will call the office with any concerns or change in symptoms. This note was generated using voice recognition software. While every effort has been made to ensure accuracy and proper chief school finance officer, there may be occasional errors that could affect the content or meaning of the described symptoms. Medications: Refilled aspirin 81 mg PO DAILY 1 tab 0RF Coding Level of Care Code Est Pt Level 4 (28403) Complex EM visit Add On G2211 Diagnoses Coronary artery disease I25.10 Non-ST elevation DE (NSTEMI) I21.4 Coronary angioplasty status Z98.61 Smoker F17.200 HTN (hypertension) I10 Time Spent (min) 32 Comment Time spent in reviewing the chart, test results, assessment, counseling and documentation.
--- OUTSIDE RECORDS SUMMARY | 2024-12-26 17:22 | XMS_ITS | Patient Health Record ---
Author Organization [facility] Address [address] [place] [address] Care Team Providers Care Roll Trucker Name Role Phone Marlen Clark Primary Care Provider Unavailab Jose M Cano Unavailable [phone] Reason For Referral No Information Medications Medication SIG (Take, Route, Fr equency, Duration) Notes Start Date End Date Status MoviPrep 100 GM as directed Orally o nce; Duration: 1 dose 05/16/2012 Active Problems Problem Type SNOMED Code ICD Code Onset Dates Problem Status W/U Status Risk Notes Problem Colon cancer screening (298602227) Colon cancer screening (V76.51) Active confirmed Plan Of Treatment Future Test Test Name Order Date COLONOSCOPY 05/16/2012 Insurance Providers Payer Name Payer Address Payer Phone Subscriber Number Group Number Insured Name Patient Relationship to Insured Coverage Start Date Coverage End Date [facility] [address] [place], [place] [id number] [phone] [id number] HARRY SAMUELS Self - patient is the insured Medical (General) History Medical History History ICD Code Diet-controlled DM Hyperlipidemia Denies [place],CVA,Lung disease,renal disease
== END 2024-12-26 14:22 | disposition home or self-care (01) ==
LOC: HO.HCS 14:00
PROVIDERS: PCP Internal Medicine
DX: I25.10 Atherosclerotic heart disease of native coronary artery without angina pectoris (principal); I21.4 Non-ST elevation (NSTEMI) myocardial infarction; Z98.61 Coronary angioplasty status; F17.200 Nicotine dependence, unspecified, uncomplicated; I10 Essential (primary) hypertension
CPT/HCPCS: 99214; G2211

== ENCOUNTER → 2024-12-26 13:59 | Outpatient (BNVA) | payer MEDICARE, SELFPAY | PROVIDERS: PCP Internal Medicine | DX: I25.10 Atherosclerotic heart disease of native coronary artery without angina pectoris (principal); Z72.0 Tobacco use; I21.4 Non-ST elevation (NSTEMI) myocardial infarction; Z98.61 Coronary angioplasty status; I10 Essential (primary) hypertension; E78.5 Hyperlipidemia, unspecified; Z79.82 Long term (current) use of aspirin | CPT/HCPCS: 99212 ==